=== PATIENT | male | born 1965 | race African-American/Black ===

== ENCOUNTER 2018-08-13 01:50 | Inpatient (IN) | payer OTHER ==
[2018-08-13] VITALS (7 sets, daily range): BP systolic 103–152; BP diastolic 54–98
[~2018-08-13] VITALS: Ht 165.1 cm; Wt 78.0 kg
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
--- NOTE | 2018-08-13 02:00 | NUR ---
URINE COLLECTED AND SENT TO LAB
--- NOTE | 2018-08-13 02:19 | NUR ---
TECH AT BEDSIDE FOR EKG
[2018-08-13] MEDS ORDERED: LABETALOL 20 MG/4 ML VIAL IV ONE (02:30)
[2018-08-13] MEDS ORDERED: NALOXONE HCL 0.4 MG/ML AMPUL IV ONE (02:30)
--- NOTE | 2018-08-13 02:35 | NUR ---
RADIOLOGY AT BEDSIDE FOR CXR
[2018-08-13] MEDS ORDERED: NALOXONE HCL 0.4 MG/ML AMPUL ONE (02:43)
[2018-08-13] MEDS ORDERED: METOPROLOL TARTRATE INJ 5 MG/5 ML AMPUL ONE (03:08)
[2018-08-13 03:09] LABS: BASOPHILS # (AUTO) 0.1 /CMM (0.0-0.2); BASOPHILS % (AUTO) 0.5 % (0.0-2.0); EOSINOPHILS % (AUTO) 0.1 % (0.0-6.0); HEMATOCRIT 37 % (39-51); HEMOGLOBIN 12.3 g/dL (13.5-17.5); LYMPHOCYTES # (AUTO) 0.5 /CMM (0.8-4.8); LYMPHOCYTES % (AUTO) 4.6 % (20.0-44.0); MEAN CORPUSCULAR HGB CONC 33 g/dl (31.0-36.0); MEAN CORPUSCULAR VOLUME 87 fL (80-96); MONOCYTES # (AUTO) 1.6 /CMM (0.1-1.30); NEUTROPHILS % (AUTO) 80.8 % (43.0-81.0); PLATELET COUNT (AUTO) 197 /CMM (150-450); RED BLOOD CELL COUNT(AUTO) 4.25 MIL/uL (4.5-6.0); WHITE BLOOD COUNT (AUTO) 11.1 K/uL (4.3-11.0)
[2018-08-13 03:15] LABS: APPEARANCE,URINE SL CLOUDY (CLEAR); BILIRUBIN,URINE NEGATIVE (NEGATIVE); BLOOD, URINE 3+ Ery/uL (NEGATIVE); COLOR,URINE YELLOW (YELLOW); KETONES,URINE NEGATIVE (NEGATIVE); LEUKOCYTE ESTERASE ,URINE 1+ (NEGATIVE); NITRITE, URINE NEGATIVE (NEGATIVE); PROTEIN,URINE 1+ mg/dl (NEGATIVE); UGLUCOSE NEGATIVE (NEGATIVE); UROBILINOGEN,URINE 0.2 EU/dL (0.2)
[2018-08-13 03:21] LABS: CALCIUM, SERUM 9.4 mg/dL (8.5-10.1); CREATININE 1.7 mg/dL (0.6-1.3); POTASSIUM 4.6 mmol/L (3.5-5.1)
[2018-08-13 03:26] LABS: BACTERIA,URINE Few /HPF (None Seen); RBC,URINE TOO NUMEROUS TO COUN /HPF (0-2); SQUAMOUS EPITHELIAL CELL,UR Few /HPF (None Seen); WBC,URINE TOO NUMEROUS TO COUN /HPF (0-3)
[2018-08-13] MEDS ORDERED: PIPERACILLIN /TAZOBACTAM 2.25 G in IV D5W 50 ML IV STA (03:28)
[2018-08-13 03:33] LABS: ALCOHOL, BLOOD < 3 mg/dL (0-0); B-TYPE NATRIURETIC PEPTIDE 7820 PG/ML (0-125)
[2018-08-13 03:39] LABS: ALBUMIN 3.7 g/dL (3.4-5.0); BILIRUBIN,DIRECT 0.1 mg/dL (0.0-0.2); BILIRUBIN,TOTAL 0.8 mg/dL (0.2-1.0); TOTAL PROTEIN, SERUM 8.9 g/dL (6.4-8.2)
[2018-08-13] MEDS ORDERED: FUROSEMIDE 40 MG/4 ML VIAL IV STA (03:46)
[2018-08-13] MEDS ORDERED: NITROGLYCERIN PACKET 1 GM PACKET TOP STA (03:46)
--- NOTE | 2018-08-13 03:46 | NUR ---
REPORT GIVEN TO AGUSTO RICE.
[2018-08-13] MEDS ORDERED: METOPROLOL TARTRATE INJ 5 MG/5 ML AMPUL IVP STA (03:58)
[2018-08-13] MEDS ORDERED: FUROSEMIDE 40 MG/4 ML VIAL ONE (04:00)
[2018-08-13] MEDS ORDERED: NITROGLYCERIN PACKET 1 GM PACKET ONE (04:00)
[2018-08-13] MEDS ORDERED: PIPERACILLIN /TAZOBACTAM 3.375 G VIAL IV ONE (04:00)
[2018-08-13] MEDS ORDERED: ASPIRIN 81 MG TAB.CHEW ONE (04:01)
[2018-08-13] MEDS ORDERED: ONDANSETRON HCL/PF 4 MG/2 ML VIAL IVP PRN (05:00)
--- NOTE | 2018-08-13 05:32 | NUR ---
JOHN RN NOTES RECEIVED FROM ER NURSE JUDE RICE. PT ON STRETCHER, A/O X4. ON ROOM AIR SATURATING WELL. IV ACCESS ON RWRIST SALINE LOCK. PT REFUSED BELONGING LIST CHECKED. PT ON TELE MONITOR SINUS TACH 107. SKIN CHECKED DONE. HEAD OF BED ELEVATED. SIDE RAILS UP. CALL LIGHT WITHIN REACH. BED ALARM ON. WILL CONTINUE TO MONITOR PT CLOSELY.
--- NOTE | 2018-08-13 06:26 | NUR ---
TD RN NOTES NO ACUTE CHANGES NOTED DURING THE SHIFT. PROVIDED COMFORT AND SAFETY. WILL ENDORSE TO THE AM NURSE FOR CONTINUITY OF CARE.
--- NOTE | 2018-08-13 08:00 | NUR ---
teletypesetter operator note received patient in bed seeping bur easily arousabal, able to follow commands, instructed to use urinal, stated that cant void well ,bladder scanner done ,noted retain 275 ml of urine, called to dr sheffield notifyed hat patient was taking Flomax, with new order given , rt wrist hl intact ,bed in lowest and locked position , call light within reach ,will cont to monitor closely
[2018-08-13] MEDS ORDERED: [UNRECOGNIZED DRUG - REMARK] (08:23)
[2018-08-13] MEDS ORDERED: UNK BP MEDICATION (08:23)
[2018-08-13] MEDS ORDERED: TAMS-12 PO (08:23)
[2018-08-13] MEDS: ASPIRIN 325 MG TABLET PO SCH (08:37)
[2018-08-13] MEDS: ACETAMINOPHEN 325 MG TABLET PO PRN ×2 (08:37→17:57)
[2018-08-13] MEDS: PANTOPRAZOLE 40 MG TABLET.DR PO SCH (08:37)
[2018-08-13] MEDS ORDERED: ASPIRIN 81 MG TAB.CHEW PO SCH (09:00)
[2018-08-13] MEDS: TAMSULOSIN 0.4 MG CAP.SR.24H PO SCH (09:54)
[2018-08-13] MEDS: FUROSEMIDE 20 MG/2 ML VIAL IV SCH (09:55)
--- NOTE | 2018-08-13 13:56 | NUR ---
teletypist note able to urinate 300 ml and 2decho doing now
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
--- NOTE | 2018-08-13 14:34 | NUR ---
telephone solicitor note spoke with dr kwon medical unit secretary notified that Troponin is now 0.175 and earlier 0.168, also notifyed that echo done and ef 40-45%, stated that will check patient soon
--- NOTE | 2018-08-13 15:44 | NUR ---
SOLID WASTE FACILITY SUPERVISOR NOTE SPOKE WITH DR DUMONT NOTIFIED THAT PATIENT FEELS DEPRESSED ,OK TO ORDER PSYCH EVAL FACE SHEET FAXED TO [facility] [place]
--- NOTE | 2018-08-13 17:18 | NUR ---
MICROFILMER NOTE DR ESQUIVEL PSYCHIATRIST AT BEDSIDE ,AWARE OF PATIENT CONDITION
[2018-08-13] MEDS: PIPERACILLIN /TAZOBACTAM 3.375 G in IV D5W 100 ML IV SCH (17:54)
[2018-08-13] MEDS ORDERED: PIPERACILLIN /TAZOBACTAM 4.5 G in IV D5W 50 ML IV SCH (18:00)
[2018-08-13] MEDS ORDERED: PIPERACILLIN /TAZOBACTAM 3.375 G in IV D5W 50 ML IV SCH (18:00)
--- NOTE | 2018-08-13 18:32 | NUR ---
EVS MANAGER NOTE TYLENOL PO GIVEN FOR HEADACHE .ALL NEEDS ATTENDED. HAVING DINNER ,WILL CONT TO MONITOR CLOSELY ,ON ZOSYN IV INFUSION. WILL MONITOR CLOSELY
--- NOTE | 2018-08-13 19:30 | NUR ---
ATTENDANT SALES NOTE: RECEIVED PT ON BED ALERT AND AWAKE, VERBALLY RESPONSIVE. NO APPARENT DISTRESS NOTED. NO COMPLAINTS OF PAIN OR DISCOMFORT AT THIS TIME. ON ROOM AIR, NO SOB NOTED. SATURATING WELL. ON TELE MONITOR SINUS TACHY HR 114BPM. IV ON RIGHT WRIST #22 INTACT AND PATENT, FLUSHING WELL. CALL LIGHT PLACED WITHIN REACH. KEPT CLEAN, DRY AND COMFORTABLE. SAFETY AND FALL PRECAUTIONS OBSERVED AND MAINTAINED. WILL CONTINUE TO MONITOR PT.
[2018-08-13] MEDS: CARVEDILOL 6.25 MG TABLET PO SCH (21:00)
[2018-08-14] VITALS: BP 135/73
[2018-08-14] MEDS: ACETAMINOPHEN 325 MG TABLET PO PRN (00:32)
[2018-08-14] MEDS: PIPERACILLIN /TAZOBACTAM 3.375 G in IV D5W 100 ML IV SCH ×3 (01:26→16:51)
[2018-08-14 04:15] VITALS: BP 119/63
--- NOTE | 2018-08-14 06:47 | NUR ---
RETORT CONDENSER ATTENDANT NOTE: NO CHANGES NOTED THROUGHOUT THE SHIFT. NO APPARENT DISTRESS NOTED. DENIES PAIN AND DISCOMFORT AT THIS TIME. NO SOB NOTED. SINUS TACHY HR 103 ON TELE MONITOR. IV ON RIGHT WRIST #20 INTACT AND PATENT, FLUSHING WELL. KEPT CLEAN, DRY AND COMFORTABLE. SAFETY AND FALL PRECAUTIONS OBSERVED AND MAINTAINED. WILL ENDORSE TO DAY SHIFT RN FOR CONTINUITY OF CARE.
--- NOTE | 2018-08-14 07:00 | NUR ---
TELEPHONE COLLECTOR NOTES PT IN BED, ASLEEP BUT EASILY AROUSABLE. PT IS A/OX4. ON TELE SR 93. O2 SAT WNL. PT COMPLAINING OF HEADACHE AND EYE INFECTION. IV ON R WRIST SL. PT IS ABLE TO TURN INDEPENDENTLY IN BED. BED IN LOCKED/LOWEST POSITION. CALL LIGHT IN REACH. WILL CONT TO MONITOR.
[2018-08-14 08:00] VITALS: BP 111/42
[2018-08-14] MEDS: ASPIRIN 325 MG TABLET PO SCH (08:42)
[2018-08-14] MEDS: TAMSULOSIN 0.4 MG CAP.SR.24H PO SCH (08:43)
[2018-08-14] MEDS: PANTOPRAZOLE 40 MG TABLET.DR PO SCH (08:43)
[2018-08-14] MEDS: ESCITALOPRAM OXALATE (10 MG) 10 MG TABLET PO SCH (08:44)
[2018-08-14] MEDS: FUROSEMIDE 20 MG/2 ML VIAL IV SCH (08:44)
[2018-08-14] MEDS: CARVEDILOL 6.25 MG TABLET PO SCH ×2 (08:44→21:00)
[2018-08-14 10:22] LABS: APPEARANCE,URINE CLOUDY (CLEAR); BILIRUBIN,URINE NEGATIVE (NEGATIVE); BLOOD, URINE 1+ Ery/uL (NEGATIVE); COLOR,URINE YELLOW (YELLOW); KETONES,URINE NEGATIVE (NEGATIVE); LEUKOCYTE ESTERASE ,URINE 1+ (NEGATIVE); NITRITE, URINE NEGATIVE (NEGATIVE); PROTEIN,URINE TRACE mg/dl (NEGATIVE); UGLUCOSE NEGATIVE (NEGATIVE); UROBILINOGEN,URINE 0.2 EU/dL (0.2)
[2018-08-14 10:31] LABS: CREATININE, URINE 153.5 MG/DL (30.0-125.0); URINE TOTAL PROTEIN 58.8 mg/dL (0-11.9)
[2018-08-14 10:47] LABS: BACTERIA,URINE Few /HPF (None Seen); SQUAMOUS EPITHELIAL CELL,UR None Seen /HPF (None Seen)
[2018-08-14 11:05] LABS: EOSINOPHIL,URINE Moderate
[2018-08-14 12:00] VITALS: BP 118/80
--- NOTE | 2018-08-14 13:12 | NUR ---
CODING VALIDATOR NOTES PT COUGHED UP BLOOD X2. PAGED DR DUMONT. AWAITING ORDERS. Addendum: 08/14/18 at 1841 by FRED ROJAS RN [id number] NO NEW ORDERS PER DR GUERRA
[2018-08-14 16:00] VITALS: BP 104/59
--- NOTE | 2018-08-14 18:41 | NUR ---
MS RN NOTES PT IN BED, RESTING. NO FURTHER EPISODES OF PRODUCTIVE COUGH W/BLOOD. PT IS NOT IN RESP DISTRESS. TOLERATING ROOM AIR AT 100%O2. BED IN LOCKED/LOWEST POSITION. CALL LIGHT IN REACH. ALL NEEDS ATTENDED TO.
--- NOTE | 2018-08-14 19:30 | NUR ---
MS RN NOTE: RECEIVED PT ON BED ALERT AND AWAKE, VERBALLY RESPONSIVE. NO APPARENT DISTRESS NOTED. NO COMPLAINTS OF PAIN OR DISCOMFORT AT THIS TIME. ON ROOM AIR, NO SOB NOTED. SATURATING WELL. IV ON RIGHT FOREARM #22 INTACT AND PATENT, FLUSHING WELL. CALL LIGHT PLACED WITHIN REACH. KEPT CLEAN, DRY AND COMFORTABLE. SAFETY AND FALL PRECAUTIONS OBSERVED AND MAINTAINED. WILL CONTINUE TO MONITOR PT.
[2018-08-14 20:00] VITALS: BP 102/61
[2018-08-15] VITALS (7 sets, daily range): BP systolic 109–116; BP diastolic 51–68
[2018-08-15] MEDS: PIPERACILLIN /TAZOBACTAM 3.375 G in IV D5W 100 ML IV SCH ×2 (02:23→10:12)
[2018-08-15] MEDS: ACETAMINOPHEN 325 MG TABLET PO PRN ×2 (03:42→08:43)
[2018-08-15 06:26] LABS: ALANINE AMINOTRANSFERASE 28 U/L (12-78); ALKALINE PHOSPHATASE 79 U/L (46-116); ASPARTATE AMINOTRANSFERASE 61 U/L (15-37); BILIRUBIN,TOTAL 0.3 mg/dL (0.2-1.0); CALCIUM, SERUM 8.9 mg/dL (8.5-10.1); CARBON DIOXIDE 27 mmol/L (21-32); CHLORIDE 98 mmol/L (98-107); CREATININE 2.3 mg/dL (0.6-1.3); GLUCOSE 160 mg/dL (74-106); MAGNESIUM 2.1 mg/dL (1.8-2.4); PHOSPHORUS 3.3 mg/dL (2.5-4.9); POTASSIUM 3.6 mmol/L (3.5-5.1); SODIUM SERUM 135 mmol/L (136-145); UREA NITROGEN, BLOOD 47 mg/dL (7-18)
[2018-08-15 06:28] LABS: CHOLESTEROL 128 mg/dL (<200); HDL CHOLESTEROL 33 mg/dL (40-60); LDL 72 mg/dL (0-99); TRIGLYCERIDES 124 mg/dL (30-150)
--- NOTE | 2018-08-15 06:34 | NUR ---
MS RN NOTE: NO CHANGES NOTED THROUGHOUT THE SHIFT. NO APPARENT DISTRESS NOTED. DENIES PAIN AND DISCOMFORT AT THIS TIME. NO SOB NOTED. IV ON RIGHT FOREARM #22 INTACT AND PATENT, FLUSHING WELL. KEPT CLEAN, DRY AND COMFORTABLE. SAFETY AND FALL PRECAUTIONS OBSERVED AND MAINTAINED. WILL ENDORSE TO DAY SHIFT RN FOR CONTINUITY OF CARE.
[2018-08-15 06:47] LABS: CREATINE KINASE, TOTAL 1239 U/L (39-308)
[2018-08-15 06:53] LABS: BASOPHILS % (AUTO) 0.3 % (0.0-2.0); EOSINOPHILS % (AUTO) 0.5 % (0.0-6.0); HEMATOCRIT 34 % (39-51); HEMOGLOBIN 11.1 g/dL (13.5-17.5); LYMPHOCYTES # (AUTO) 0.8 /CMM (0.8-4.8); MEAN CORPUSCULAR HGB CONC 33 g/dl (31.0-36.0); MEAN CORPUSCULAR VOLUME 87 fL (80-96); MONOCYTES # (AUTO) 0.7 /CMM (0.1-1.30); MONOCYTES % (AUTO) 15.1 % (2.0-12.0); NEUTROPHILS % (AUTO) 67.1 % (43.0-81.0); PLATELET COUNT (AUTO) 158 /CMM (150-450); RED BLOOD CELL COUNT(AUTO) 3.86 MIL/uL (4.5-6.0); WHITE BLOOD COUNT (AUTO) 4.5 K/uL (4.3-11.0)
[2018-08-15] MEDS: TAMSULOSIN 0.4 MG CAP.SR.24H PO SCH (08:44)
[2018-08-15] MEDS: CARVEDILOL 6.25 MG TABLET PO SCH ×2 (08:44→21:13)
[2018-08-15] MEDS: FUROSEMIDE 20 MG/2 ML VIAL IV SCH (08:44)
[2018-08-15] MEDS: ASPIRIN EC 81 MG TABLET.DR PO SCH (08:44)
[2018-08-15] MEDS: ESCITALOPRAM OXALATE (10 MG) 10 MG TABLET PO SCH (08:45)
[2018-08-15] MEDS: FAMOTIDINE (20 MG) 20 MG TABLET PO SCH (08:52)
--- NOTE | 2018-08-15 10:11 | NUR ---
RN NOTES PT IN BED, ASLEEP BUT EASILY AROUSABLE. PT IS A/OX4. . O2 SAT WNL. PT COMPLAINING OF HEADACHE AND EYE INFECTION. IV ON R WRIST SL. PT IS ABLE TO TURN INDEPENDENTLY IN BED. BED IN LOCKED/LOWEST POSITION. CALL LIGHT IN REACH. WILL CONT TO MONITOR.
[2018-08-15 13:54] LABS: EOSINOPHILS % (MANUAL) 1 % (0-4); LYMPHOCYTES % (MANUAL) 12 % (16-48); MONOCYTES % (MANUAL) 4 % (0-11.0); NEUTROPHILS % (MANUAL) 83 (42-76)
[2018-08-15] MEDS ORDERED: LORAZEPAM INJ 2 MG/ML VIAL IV PRN (16:00)
[2018-08-15] MEDS: CEFTRIAXONE 1 G in IV D5W 50 ML IV SCH (17:04)
[2018-08-15] MEDS: HYDROCODONE/APAP 5/325MG 1 EACH TABLET PO PRN (21:15)
--- NOTE | 2018-08-16 01:30 | NUR ---
RN NOTES GAVE REPORT AND PATIENT TO DWAYNE RODRIGUEZ
[2018-08-16] MEDS: HYDROCODONE/APAP 5/325MG 1 EACH TABLET PO PRN (02:53)
[2018-08-16 04:00] VITALS: BP 125/76
[2018-08-16 06:29] LABS: BASOPHILS % (AUTO) 0.2 % (0.0-2.0); EOSINOPHILS % (AUTO) 1.6 % (0.0-6.0); HEMATOCRIT 35 % (39-51); HEMOGLOBIN 11.5 g/dL (13.5-17.5); LYMPHOCYTES # (AUTO) 1.1 /CMM (0.8-4.8); LYMPHOCYTES % (AUTO) 34.2 % (20.0-44.0); MEAN CORPUSCULAR HGB CONC 33 g/dl (31.0-36.0); MEAN CORPUSCULAR VOLUME 88 fL (80-96); MONOCYTES # (AUTO) 0.5 /CMM (0.1-1.30); MONOCYTES % (AUTO) 17.1 % (2.0-12.0); NEUTROPHILS # (AUTO) 1.5 /CMM (1.8-8.9); NEUTROPHILS % (AUTO) 46.9 % (43.0-81.0); PLATELET COUNT (AUTO) 153 /CMM (150-450); RED BLOOD CELL COUNT(AUTO) 3.95 MIL/uL (4.5-6.0); WHITE BLOOD COUNT (AUTO) 3.2 K/uL (4.3-11.0)
--- NOTE | 2018-08-16 07:25 | NUR ---
MS RN NOTES PATIENT IN BED ALERT ORIENTED X 3. NO ACUTE DISTRESS NOTED. BREATHING UNLABORED. NO SOB NOTED. IV ACCESS PATENT AND INTACT, NO REDNESS OR SWELLING NOTED. CALL LIGHT WITHIN REACH. WILL CONTINUE TO MONITOR ACCORDINGLY.
[2018-08-16 07:39] LABS: ALANINE AMINOTRANSFERASE 40 U/L (12-78); ALKALINE PHOSPHATASE 74 U/L (46-116); ASPARTATE AMINOTRANSFERASE 89 U/L (15-37); BILIRUBIN,TOTAL 0.2 mg/dL (0.2-1.0); CALCIUM, SERUM 8.6 mg/dL (8.5-10.1); CARBON DIOXIDE 28 mmol/L (21-32); CHLORIDE 102 mmol/L (98-107); CREATININE 1.9 mg/dL (0.6-1.3); GLUCOSE 101 mg/dL (74-106); MAGNESIUM 2.1 mg/dL (1.8-2.4); PHOSPHORUS 3.9 mg/dL (2.5-4.9); POTASSIUM 4.1 mmol/L (3.5-5.1); SODIUM SERUM 138 mmol/L (136-145); UREA NITROGEN, BLOOD 47 mg/dL (7-18)
[2018-08-16 08:00] VITALS: BP_SYST 114; BP_SYST 116; BP_DIAS 57; BP_DIAS 60
[2018-08-16] MEDS: TAMSULOSIN 0.4 MG CAP.SR.24H PO SCH (08:30)
[2018-08-16] MEDS: ASPIRIN EC 81 MG TABLET.DR PO SCH (08:30)
[2018-08-16] MEDS: ESCITALOPRAM OXALATE (10 MG) 10 MG TABLET PO SCH (08:31)
[2018-08-16] MEDS: CARVEDILOL 6.25 MG TABLET PO SCH ×2 (08:32→20:25)
[2018-08-16] MEDS: FAMOTIDINE (20 MG) 20 MG TABLET PO SCH (08:32)
[2018-08-16 08:44] LABS: CREATINE KINASE, TOTAL 2053 U/L (39-308)
--- NOTE | 2018-08-16 11:00 | NUR ---
MS RN NOTES SEEN AND EVALUATED BY CARMEN EMERY, AWARE OF LABORATORY RESULT INCLUDING ELEVATED TOTAL CREATININE KINASE RESULT.
[2018-08-16 12:00] VITALS: BP 107/58
[2018-08-16 16:00] VITALS: BP 112/65
[2018-08-16] MEDS: CEFTRIAXONE 1 G in IV D5W 50 ML IV SCH (16:16)
--- NOTE | 2018-08-16 19:00 | NUR ---
MS RN NOTES PATIENT IN BED ALERT ORIENTED X 3. NO ACUTE DISTRESS NOTED. BREATHING UNLABORED. NO SOB NOTED. IV ACCESS PATENT AND INTACT, NO REDNESS OR SWELLING NOTED. DUE MEDICATIONS GIVEN, NO ASE NOTED. NEEDS ATTENDED AND ANTICIPATED. KEPT CLEAN, DRY AND COMFORTABLE. CALL LIGHT WITHIN REACH. ENDORSED TO NIGHT NURSE FOR CONTINUITY OF CARE.
[2018-08-16] MEDS: GABAPENTIN 300 MG CAPSULE PO SCH (19:02)
[2018-08-16 20:00] VITALS: BP_SYST 101; BP_SYST 122; BP_DIAS 66; BP_DIAS 67
[2018-08-17] VITALS: BP 122/66
[2018-08-17] MEDS: HYDROCODONE/APAP 5/325MG 1 EACH TABLET PO PRN ×2 (03:34→21:14)
[2018-08-17 04:00] VITALS: BP 125/69
[2018-08-17 06:09] LABS: *SPE A/G RATIO 0.7 (0.7-1.7); *SPE ALBUMIN 3.1 g/dL (2.9-4.4); *SPE ALPHA-1-GLOBULIN 0.4 g/dL (0.0-0.4); *SPE GLOBULIN, TOTAL 4.4 g/dL (2.2-3.9); *SPE M-SPIKE Not Observed g/dL (Not Observed)
--- NOTE | 2018-08-17 06:37 | NUR ---
MS RN NOTE PATIENT TOLERATED THE NIGHT WELL, NO ACUTE CHANGES. NO S/S OF DISTRESS/DISCOMFORT. WILL ENDORSE TO AM SHIFT FOR HARPAL.
--- NOTE | 2018-08-17 07:00 | NUR ---
MS RN OPENING NOTES RECEIVED PT LYING ON BED.ALERT/ORIENTED X4.ON ROOM AIR,TOLERATING WELL.NO SOB AND ACUTE DISTRESS NOTED.IV LINE IS ON RFA G22,SITE IS CLEAN AND DRY.NO INFILTRATION NOTED.SAFETY IS MAINTAINED AT ALL TIMES.BED IS IN LOW POSITION AND LOCKED.CALL LIGHT IS WITHIN REACH.WILL CONTINUE TO MONITOR THE PT CLOSELY.
[2018-08-17 07:06] LABS: BASOPHILS % (AUTO) 0.4 % (0.0-2.0); EOSINOPHILS % (AUTO) 1.7 % (0.0-6.0); HEMATOCRIT 34 % (39-51); HEMOGLOBIN 11.2 g/dL (13.5-17.5); LYMPHOCYTES # (AUTO) 1.5 /CMM (0.8-4.8); LYMPHOCYTES % (AUTO) 42.5 % (20.0-44.0); MEAN CORPUSCULAR HGB CONC 33 g/dl (31.0-36.0); MEAN CORPUSCULAR VOLUME 87 fL (80-96); MONOCYTES # (AUTO) 0.5 /CMM (0.1-1.30); MONOCYTES % (AUTO) 14.4 % (2.0-12.0); NEUTROPHILS # (AUTO) 1.4 /CMM (1.8-8.9); PLATELET COUNT (AUTO) 150 /CMM (150-450); RED BLOOD CELL COUNT(AUTO) 3.89 MIL/uL (4.5-6.0); WHITE BLOOD COUNT (AUTO) 3.5 K/uL (4.3-11.0)
[2018-08-17 07:18] LABS: CALCIUM, SERUM 8.8 mg/dL (8.5-10.1); CARBON DIOXIDE 28 mmol/L (21-32); CHLORIDE 105 mmol/L (98-107); CREATININE 1.4 mg/dL (0.6-1.3); GLUCOSE 138 mg/dL (74-106); PHOSPHORUS 2.7 mg/dL (2.5-4.9); POTASSIUM 4.3 mmol/L (3.5-5.1); SODIUM SERUM 139 mmol/L (136-145); UREA NITROGEN, BLOOD 35 mg/dL (7-18)
[2018-08-17 07:44] LABS: CREATINE KINASE, TOTAL 1325 U/L (39-308)
[2018-08-17 08:00] VITALS: BP 127/71
[2018-08-17] MEDS: CARVEDILOL 6.25 MG TABLET PO SCH ×2 (08:22→21:14)
[2018-08-17] MEDS: ASPIRIN EC 81 MG TABLET.DR PO SCH (08:22)
[2018-08-17] MEDS: GABAPENTIN 300 MG CAPSULE PO SCH ×3 (08:22→17:56)
[2018-08-17] MEDS: TAMSULOSIN 0.4 MG CAP.SR.24H PO SCH (08:23)
[2018-08-17] MEDS: ESCITALOPRAM OXALATE (10 MG) 10 MG TABLET PO SCH (08:23)
[2018-08-17] MEDS: FAMOTIDINE (20 MG) 20 MG TABLET PO SCH (08:23)
--- NOTE | 2018-08-17 11:16 | NUR ---
JONATHAN met with pt. bedside to inform him that JONATHAN sent a referral email to [facility] but has not hear back from them. JONATHAN also gave pt. information to the Homeless Connect Day which is being held on August 26 at [facility] located at [address] [place] [address] in [place] [address].JONATHAN encouraged pt. to attend the event. Pt. informed SW that he would like voluntary admission to a psychiatric hospital because he is feeling suicidal and has a plan to run into traffic. JONATHAN informed pt. she will send a referral to [facility] ([facility]) for voluntary admission and followup with pt. once he is medically cleared and when accepted by [facility]. JONATHAN updated JOSEPH CRN Erendira Bishop and manager of case management Luisa regarding pt's disposition. JONATHAN sent clinicals to [facility] intake dept at .
[2018-08-17 13:14] LABS: PTH, INTACT 48 pg/mL (15-65)
[2018-08-17 16:00] VITALS: BP 141/82
--- NOTE | 2018-08-17 16:19 | NUR ---
JONATHAN contacted intake at [facility] and spoke to Lindy to inquire if they received the clinicals that JONATHAN sent in the AM. Lindy informed SW they did receive it and to fax note that states pt. is suicidal with a plan and discharge summary to state pt. is medically cleared. JONATHAN spoke to disability case manager Luisa who will fax note and d/c note once Dr. Bingham has completed the discharge summary.
[2018-08-17] MEDS: CEFTRIAXONE 1 G in IV D5W 50 ML IV SCH (17:56)
--- NOTE | 2018-08-17 19:31 | NUR ---
RN NOTES PATIENT ENDORSED TO NEXT SHIFT IN STABLE CONDITION FOR CONTINUITY OF CARE. WILL CONT TO MONITOR.
[2018-08-17 20:00] VITALS: BP 155/91
[2018-08-18 04:00] VITALS: BP 103/58
[2018-08-18 08:00] VITALS: BP 162/88
[2018-08-18] MEDS: CARVEDILOL 6.25 MG TABLET PO SCH (08:23)
[2018-08-18] MEDS: GABAPENTIN 300 MG CAPSULE PO SCH ×3 (08:23→17:03)
[2018-08-18] MEDS: ASPIRIN EC 81 MG TABLET.DR PO SCH (08:23)
[2018-08-18] MEDS: TAMSULOSIN 0.4 MG CAP.SR.24H PO SCH (08:23)
[2018-08-18] MEDS: FAMOTIDINE (20 MG) 20 MG TABLET PO SCH (08:23)
[2018-08-18] MEDS: ESCITALOPRAM OXALATE (10 MG) 10 MG TABLET PO SCH (08:23)
[2018-08-18] MEDS ORDERED: ESCI10TA PO (11:00)
[2018-08-18] MEDS ORDERED: CARV6.252 PO (11:00)
[2018-08-18] MEDS ORDERED: GABA300C PO (11:00)
[2018-08-18] MEDS ORDERED: ASPI-1152 PO (11:00)
--- NOTE | 2018-08-18 12:24 | NUR ---
JONATHAN faxed referral to [facility] ([facility]) for voluntary admission at .
[2018-08-18] MEDS: HYDROCODONE/APAP 5/325MG 1 EACH TABLET PO PRN (13:09)
[2018-08-18 13:13] VITALS: BP 139/82
--- NOTE | 2018-08-18 13:42 | NUR ---
JONATHAN contacted Laisha in intake at [facility] to inquire if pt. has been accepted. Laisha informed JONATHAN, pt. has been accepted to [facility] [place] location and Dr. Hauser is the accepting doctor. Laisha also requested for nurse to nurse report to be called in to DWAYNE Hutchinson at [place] . JONATHAN called JOSEPH CRIrving Bishop and gave her the aforementioned information and requested a callback once report has been made.
[2018-08-18] MEDS: CEFTRIAXONE 1 G in IV D5W 50 ML IV SCH (17:00)
== END 2018-08-18 17:15 | DRG 199 ==
LOC: ER 01:53 → TELE1 03:17 → MEDSG1 08-14 15:51
PROVIDERS: ADMIT Internal Medicine; ATTEND Internal Medicine
DX: I16.0 Hypertensive urgency (principal); N17.0 Acute kidney failure with tubular necrosis; I21.A1 Myocardial infarction type 2; I50.23 Acute on chronic systolic (congestive) heart failure; I13.0 Hypertensive heart and chronic kidney disease with heart failure and stage 1 through stage 4 chronic kidney disease, or unspecified chronic kidney disease; F11.23 Opioid dependence with withdrawal; F14.10 Cocaine abuse, uncomplicated; N18.9 Chronic kidney disease, unspecified; Z59.0 Homelessness; F15.10 Other stimulant abuse, uncomplicated; N39.0 Urinary tract infection, site not specified; K21.9 Gastro-esophageal reflux disease without esophagitis; E11.22 Type 2 diabetes mellitus with diabetic chronic kidney disease; N40.0 Benign prostatic hyperplasia without lower urinary tract symptoms; M62.82 Rhabdomyolysis; I42.9 Cardiomyopathy, unspecified; Z82.49 Family history of ischemic heart disease and other diseases of the circulatory system; J45.909 Unspecified asthma, uncomplicated; F31.30 Bipolar disorder, current episode depressed, mild or moderate severity, unspecified; F17.210 Nicotine dependence, cigarettes, uncomplicated; E78.5 Hyperlipidemia, unspecified; I25.10 Atherosclerotic heart disease of native coronary artery without angina pectoris
CPT/HCPCS: 36415; 71045-TC; 76770-TC; 80048-TC; 80053-TC; 80061-TC; 80076-TC; 80305; 81000-TC; 82550-TC; 82553-TC; 82570-TC; 82962-TC; 83605-TC; 83735-TC; 83880; 83970; 84100-TC; 84155; 84155-TC; 84165; 84300-TC; 84484-TC; 85025-TC; 85730-TC; 87040-TC; 87081-TC; 87086-TC; 87186-TC; 93307-TC; G0378; G0480; J0696; J1940; J2310; J2543; J3490; J7060